=== PATIENT | male | born 1940 | race Caucasian/White ===

== ENCOUNTER 2019-01-10 08:09 | Day surgery (SDC) | payer MEDICARE ==
[~2019-01-10 08:09] MED LIST: Propofol 200 MG/20 ML SDV ONE; fentaNYL 100 MCG/2 ML SDV ONE
[2019-01-10] MEDS: Dextrose 5%-Lactated Ringers 1,000 ML IV SCH (08:51)
[2019-01-10] MEDS: Pantoprazole 40 MG Vial IVPUSH ONE (12:53)
--- NOTE | 2019-01-11 10:45 | OR ---
DATE OF PROCEDURE: 01/10/2019 SURGEON: Ehsan Bloom MD PREOPERATIVE DIAGNOSIS: Probable ongoing low-grade gastrointestinal bleed. POSTOPERATIVE DIAGNOSES: 1. Ulcer at esophagogastric junction with small amount of fresh blood and coffee-ground material, consistent with ongoing upper gastrointestinal bleed. 2. Left colonic diverticulosis with no obvious colon site of likely bleeding identified. OPERATIVE PROCEDURES: 1. Upper gastrointestinal endoscopy with biopsies of gastric pouch for CLOtest. 2. Flexible colonoscopy. INDICATIONS: This is a 78-year-old presenting with ongoing problems with dropping hemoglobin and ferritin. The patient is status post Damien-en-Y gastric bypass around 10 years ago. The plan is to proceed with an upper and lower endoscopy to try to identify bleeding source. Potential risks of the procedure including bleeding and perforation were discussed, and the patient wishes to proceed. PROCEDURE DETAILS: The patient was taken to the operating room and placed in a left lateral decubitus position. IV sedation was administered, after which the upper GI endoscope was passed orally through the length of the esophagus and into the gastric pouch, from there through the gastrojejunostomy only 20 cm into the Damien limb. As one approached the gastric pouch, obviously there was some slightly fresh blood, as well as coffee-ground material. This was associated with an area of ulceration at the esophagogastric junction, which at this point was quite thin, but this was obviously to the point where the patient was having some low-grade ongoing bleeding. Beyond that, no additional abnormalities were noted on upper GI endoscope. Biopsies were obtained from the gastric pouch and sent for CLOtest for H. pylori. Minimal bleeding from the biopsy sites was seen. The gastroscope was then withdrawn. Attention was taken to the colonoscopy. Initial digital rectal exam was performed and was unremarkable. The colonoscope was then passed eventually to the level of the cecum. The patient had some uncomplicated left colonic diverticulosis. Otherwise, no abnormal findings were identified, so there is not any likely bleeding source for the nature of bleeding that the patient is having. The scope was then withdrawn, the above findings reconfirmed, and the procedure then concluded. The patient will be given Protonix 40 mg IV in the recovery room. He will be started on Protonix 40 mg daily starting tomorrow. Plan will be to have the patient back to see Milagros Graham in 2 weeks. When we see the patient back, we will obtain bariatric laboratory studies, which would include hemoglobin and ferritin, and then we will have this patient back to see Dr. Stacy in 4 weeks for followup on the GI bleeding as well. Ehsan Bloom MD /[id number]
== END 2019-01-10 14:19 | disposition home or self-care (01) ==
LOC: JP.SDS 08:09
PROVIDERS: ATTEND Surgery
DX: K57.31 Diverticulosis of large intestine without perforation or abscess with bleeding (principal); K22.11 Ulcer of esophagus with bleeding; I11.0 Hypertensive heart disease with heart failure; I50.9 Heart failure, unspecified; I25.10 Atherosclerotic heart disease of native coronary artery without angina pectoris; I25.2 Old myocardial infarction; I71.2 Thoracic aortic aneurysm, without rupture; E11.9 Type 2 diabetes mellitus without complications; E66.9 Obesity, unspecified; Z68.26 Body mass index [BMI] 26.0-26.9, adult; Z79.82 Long term (current) use of aspirin; Z79.84 Long term (current) use of oral hypoglycemic drugs; Z79.899 Other long term (current) drug therapy
CPT/HCPCS: 87081; C9113; J2704; J3010; J7042

== ENCOUNTER 2022-02-04 08:58 | Emergency (ER) | payer MEDICARE ==
[2022-02-04] MEDS ORDERED: Sodium Chloride 0.9% 10 ML Syringe FLUSH ONE (10:46)
[2022-02-04] MEDS ORDERED: Sodium Chloride 0.9% 100 ML IV ONE (10:46)
[2022-02-04] MEDS ORDERED: Iopamidol 755 Mg/ML 100 ML Bottle IV SCH (11:00)
[2022-02-04] MEDS ORDERED: Potassium Chloride 20 MEQ in Premix Bag 1 BAG IV ONE (12:31)
[2022-02-04] MEDS: Potassium Chloride 20 MEQ, Lidocaine 1% 2 ML in Sodium Chloride 0.9% 100 ML IV ONE (13:13)
== END 2022-02-04 15:50 | disposition other institution (70) ==
LOC: JP.ED 08:58
DX: J90 Pleural effusion, not elsewhere classified (principal); R09.02 Hypoxemia; E78.00 Pure hypercholesterolemia, unspecified; I10 Essential (primary) hypertension; E11.9 Type 2 diabetes mellitus without complications; I25.2 Old myocardial infarction; Z86.73 Personal history of transient ischemic attack (TIA), and cerebral infarction without residual deficits; Z79.82 Long term (current) use of aspirin; Z79.84 Long term (current) use of oral hypoglycemic drugs; Z87.891 Personal history of nicotine dependence; Z20.822 Contact with and (suspected) exposure to COVID-19
CPT/HCPCS: 36415; 71045; 71275; 74175; 80048; 81001; 85025; 96365; 96366; 99285; J2001; J3480; J3490; U0002